=== PATIENT | male | born 1970 | race Caucasian/White ===

== ENCOUNTER 2016-12-18 12:07 | Emergency (ER) | payer BC ==
[~2016-12-18] VITALS: Ht 185.4 cm; Wt 132.8 kg
[~2016-12-18 12:07] MED LIST: ANALGESIC325 M1 PO; ANTIBIOTIC PO; ASPIR-LOW81 MG PO; ASPIRIN EC325 MG PO; AUGMENTIN875 MG PO; CEFDINIR300 MG PO; CIPRO500 MG PO; COLACE100 MG PO; EFFIENT10 MG PO; FLAGYL500 MG PO; KETOCONAZOLE120 ML TP; LISINOPRIL10 MG PO; LITE COAT ASPI325 M1 PO; LO-DOSE ASPIRIN81 M1 PO; LOPID600 MG PO; MAALOX ADVANCE355 ML PO; METOPROLOL SUC100 MG PO; METOPROLOL SUCC50 MG PO; MOTRIN600 MG PO; MUCINEX DM ER1 EACH PO; MULTIVITAMIN1 EAC1; MULTIVITAMIN1 EAC2 PO; NEXIUM; NICODERM CQ1 EAC1 TD; NITROSTAT0.4 MG SL; NORCO 5/3251 TABLET PO; ONE-A-DAY ESSE1 EAC1 PO; PANTOPRAZOLE SO40 MG PO; PERCOCET 10/1 TABLET PO; PERCOCET 5/31 TABLET PO; PLAVIX75 MG PO; PRAVASTATIN SOD40 MG PO; PRINIVIL10 MG PO; PROTONIX40 MG PO; RANEXA1000 MG PO; REGLAN10 MG PO; REGLAN5 MG PO; TOPROL XL100 MG PO; XANAX0.125 MG PO; XANAX0.25 MG PO; ZANTAC300 MG PO; ZOFRAN ODT4 MG PO
[2016-12-18 12:39] LABS: ADD MIUA? YES; BILIRUBIN NEGATIVE; BLOOD LARGE; COLOR YELLOW ((YELLOW)); GLUCOSE (STRIP) NEGATIVE; KETONES NEGATIVE; LEUKOCYTES NEGATIVE; NITRITE NEGATIVE; PROTEIN (STRIP) NEGATIVE; SPECIFIC GRAVITY 1.015 (1.000-1.030); UROBILINOGEN 0.2 MG/DL (0.2-1.0)
[2016-12-18 12:49] LABS: BACTERIA NONE SEEN /HPF; EPITHELIAL CELLS RARE /HPF; MUCUS TRACE /LPF; RED BLOOD CELLS TNTC /HPF (0-5); UCUL ADDED? NO; WHITE BLOOD CELLS 0-5 /HPF (0-5)
[2016-12-18 13:06] LABS: HEMATOCRIT 46.9 % (38.0-50.0); MCH 29.9 PG (29.0-34.0); MCHC 34.5 G/DL (30.0-36.0); MCV 86.5 FL (86-99); MEAN PLAT.VOLUME 8.6 uM^3 (9.0-12.4); PLATELET COUNT 261 K/uL (156-360); RBC DIS.WIDTH-CV 13.7 % (11.8-14.6); RBC DIS.WIDTH-SD 43.5 % (39-53); RED BLOOD COUNT 5.42 M/uL (4.00-5.50); WHITE BLOOD COUNT 8.8 K/uL (4.1-10.2)
[2016-12-18 13:16] LABS: CHLORIDE 105 mEq/L (99-109); POTASSIUM 4.3 mEq/L (3.7-5.4); SODIUM 140 mEq/L (136-147)
[2016-12-18 13:18] LABS: GLUCOSE 104 mg/dL (70-99)
[2016-12-18 13:20] LABS: ANION GAP 11 MEQ/L (2-14); TOTAL BILIRUBIN 0.2 mg/dL (0.0-1.0)
[2016-12-18 13:22] LABS: ALKALINE PHOSPHATASE 90 IU/L (3-129); GFR ESTIMATE (CALCULATED) > 59 mL/min/
[2016-12-18 13:23] LABS: UREA NITROGEN (BUN) 11 mg/dL (9-23)
[2016-12-18 14:16] LABS: CREATINE KINASE 309 IU/L (1-294); TOTAL CK 309 IU/L (1-294)
[2016-12-18 14:22] LABS: TROP-I INTERPRETATION NEGATIVE; TROPONIN-I < 0.01 ng/mL (0.0-0.30)
[2016-12-18 14:23] LABS: CK-MB 2.2 ng/mL (0.0-4.9)
[2016-12-18] MEDS ORDERED: FLOMAX0.4 MG PO (16:24)
[2016-12-18 16:36] VITALS: BP 116/68
== END 2016-12-18 16:36 | disposition home or self-care (01) ==
LOC: EME 12:07
DX: N20.0 Calculus of kidney (principal); N23 Unspecified renal colic; E78.5 Hyperlipidemia, unspecified; I10 Essential (primary) hypertension; I25.2 Old myocardial infarction; Z87.442 Personal history of urinary calculi; Z88.2 Allergy status to sulfonamides; F17.200 Nicotine dependence, unspecified, uncomplicated
CPT/HCPCS: 71020; 74176; 80053; 81003; 82550; 82550 91; 82553; 84484; 85027; 93005; 99281; 99284

== ENCOUNTER 2017-01-11 18:45 | Emergency (ER) | payer BC ==
[~2017-01-11] VITALS: Ht 185.4 cm; Wt 135.1 kg
[~2017-01-11 18:45] MED LIST changes: +FLOMAX0.4 MG PO
[2017-01-11 19:38] LABS: HEMATOCRIT 48.7 % (38.0-50.0); MCH 29.2 PG (29.0-34.0); MCHC 33.1 G/DL (30.0-36.0); MCV 88.4 FL (86-99); MEAN PLAT.VOLUME 8.8 uM^3 (9.0-12.4); PLATELET COUNT 276 K/uL (156-360); RBC DIS.WIDTH-CV 13.3 % (11.8-14.6); RBC DIS.WIDTH-SD 43.1 % (39-53); RED BLOOD COUNT 5.51 M/uL (4.00-5.50); WHITE BLOOD COUNT 11.3 K/uL (4.1-10.2)
[2017-01-11 19:42] LABS: ADD MIUA? YES; BILIRUBIN NEGATIVE; BLOOD LARGE; GLUCOSE (STRIP) NEGATIVE; KETONES NEGATIVE; LEUKOCYTES NEGATIVE; NITRITE NEGATIVE; PROTEIN (STRIP) 100; SPECIFIC GRAVITY 1.018 (1.000-1.030); UROBILINOGEN 0.2 MG/DL (0.2-1.0)
[2017-01-11 19:47] LABS: COLOR DK YELLOW ((YELLOW))
[2017-01-11 19:52] LABS: CHLORIDE 103 mEq/L (99-109); POTASSIUM 4.2 mEq/L (3.7-5.4); SODIUM 137 mEq/L (136-147)
[2017-01-11 19:54] LABS: GLUCOSE 107 mg/dL (70-99)
[2017-01-11 19:55] LABS: ANION GAP 10 MEQ/L (2-14)
[2017-01-11 19:58] LABS: GFR ESTIMATE (CALCULATED) > 59 mL/min/
[2017-01-11 19:59] LABS: UREA NITROGEN (BUN) 14 mg/dL (9-23)
[2017-01-11 20:34] LABS: EPITHELIAL CELLS NONE SEEN /HPF; MUCUS NONE SEEN /LPF; RED BLOOD CELLS TNTC /HPF (0-5); WHITE BLOOD CELLS 0-5 /HPF (0-5)
[2017-01-11 20:35] LABS: BACTERIA 1+ /HPF; UCUL ADDED? NO
[2017-01-11] MEDS ORDERED: FLOMAX0.4 MG PO (21:43)
[2017-01-11] MEDS ORDERED: INDOCIN50 MG PO (21:50)
[2017-01-11 21:58] VITALS: BP 159/95
[2017-01-17] MEDS ORDERED: FLOMAX0.4 MG PO (10:52)
[2017-01-17] MEDS ORDERED: NITROSTAT0.4 MG SL (10:54)
[2017-01-17] MEDS ORDERED: CIPRO500 MG PO (10:56)
[2017-01-17] MEDS ORDERED: ZOFRAN4 MG PO (10:56)
== END 2017-01-11 21:59 | disposition home or self-care (01) ==
LOC: RME 18:45 → EME 18:45 → RME 21:59
DX: N13.2 Hydronephrosis with renal and ureteral calculous obstruction (principal); R30.0 Dysuria; R31.9 Hematuria, unspecified; Z87.442 Personal history of urinary calculi; I10 Essential (primary) hypertension; I25.10 Atherosclerotic heart disease of native coronary artery without angina pectoris; I25.2 Old myocardial infarction; Z95.5 Presence of coronary angioplasty implant and graft; Z79.02 Long term (current) use of antithrombotics/antiplatelets; Z79.82 Long term (current) use of aspirin; F17.200 Nicotine dependence, unspecified, uncomplicated
CPT/HCPCS: 74176; 80048; 81003; 85027; 99281; 99285; J1885; J2405; J7030

== ENCOUNTER 2017-01-18 07:58 | Day surgery (SDC) | payer BC ==
[~2017-01-18] VITALS: Ht 185.4 cm; Wt 134.0 kg
[~2017-01-18 07:58] MED LIST changes: +INDOCIN50 MG PO; +ZOFRAN4 MG PO
[2017-01-18] MEDS ORDERED: ZOFRAN4 MG PO (08:23)
[2017-01-18] MEDS ORDERED: INDOCIN50 MG PO (08:28)
[2017-01-18 08:34] VITALS: BP 141/87
[2017-01-18 11:36] VITALS: BP 127/80
[2017-01-18 12:28] VITALS: BP 133/81
== END 2017-01-18 12:35 | disposition home or self-care (01) ==
LOC: SDC 07:58
PROVIDERS: Urology
DX: N20.1 Calculus of ureter (principal); F17.210 Nicotine dependence, cigarettes, uncomplicated; Z82.49 Family history of ischemic heart disease and other diseases of the circulatory system; Z80.3 Family history of malignant neoplasm of breast; Z88.2 Allergy status to sulfonamides
CPT/HCPCS: 74420; 82365 90; C1876; J0690; J1100; J1580; J2250; J2405; J3010

== ENCOUNTER 2017-03-02 13:06 | Emergency (ER) | payer BC ==
[~2017-03-02] VITALS: Ht 185.4 cm; Wt 131.6 kg
[2017-03-02 14:02] LABS: ADD MIUA? YES; BILIRUBIN NEGATIVE; BLOOD SMALL; COLOR YELLOW ((YELLOW)); GLUCOSE (STRIP) NEGATIVE; KETONES NEGATIVE; LEUKOCYTES NEGATIVE; NITRITE NEGATIVE; PROTEIN (STRIP) NEGATIVE; SPECIFIC GRAVITY 1.015 (1.000-1.030); UROBILINOGEN 0.2 MG/DL (0.2-1.0)
[2017-03-02 14:06] LABS: BACTERIA RARE /HPF; EPITHELIAL CELLS RARE /HPF; MUCUS TRACE /LPF; RED BLOOD CELLS 30-40 /HPF (0-5); UCUL ADDED? NO; WHITE BLOOD CELLS 0-5 /HPF (0-5)
[2017-03-02 14:39] LABS: HEMATOCRIT 49.2 % (38.0-50.0); MCH 29.7 PG (29.0-34.0); MCHC 33.9 G/DL (30.0-36.0); MCV 87.4 FL (86-99); MEAN PLAT.VOLUME 8.6 uM^3 (9.0-12.4); PLATELET COUNT 278 K/uL (156-360); RBC DIS.WIDTH-CV 13.6 % (11.8-14.6); RBC DIS.WIDTH-SD 43.5 % (39-53); RED BLOOD COUNT 5.63 M/uL (4.00-5.50); WHITE BLOOD COUNT 15.5 K/uL (4.1-10.2)
[2017-03-02 14:52] LABS: CHLORIDE 102 mEq/L (99-109); POTASSIUM 4.3 mEq/L (3.7-5.4); SODIUM 135 mEq/L (136-147)
[2017-03-02 14:54] LABS: GLUCOSE 100 mg/dL (70-99)
[2017-03-02 14:55] LABS: ANION GAP 11 MEQ/L (2-14)
[2017-03-02 14:56] LABS: TOTAL BILIRUBIN 0.4 mg/dL (0.0-1.0)
[2017-03-02 14:57] LABS: ALKALINE PHOSPHATASE 89 IU/L (3-129)
[2017-03-02 14:58] LABS: GFR ESTIMATE (CALCULATED) > 59 mL/min/
[2017-03-02 14:59] LABS: UREA NITROGEN (BUN) 10 mg/dL (9-23)
[2017-03-02] MEDS ORDERED: FLAGYL500 MG PO (18:04)
[2017-03-02] MEDS ORDERED: CIPRO500 MG PO (18:04)
[2017-03-02] MEDS ORDERED: ZOFRAN ODT4 MG PO (18:04)
[2017-03-02] MEDS ORDERED: FLOMAX0.4 MG PO (18:04)
[2017-03-02] MEDS ORDERED: PERCOCET 5/31 TABLET PO (18:04)
[2017-03-02 18:35] VITALS: BP 124/77
== END 2017-03-02 18:36 | disposition home or self-care (01) ==
LOC: EME 13:06
DX: K57.92 Diverticulitis of intestine, part unspecified, without perforation or abscess without bleeding (principal); N20.0 Calculus of kidney; E78.5 Hyperlipidemia, unspecified; I25.2 Old myocardial infarction; Z87.442 Personal history of urinary calculi; F17.200 Nicotine dependence, unspecified, uncomplicated; Z79.82 Long term (current) use of aspirin
CPT/HCPCS: 74176; 80053; 81003; 85027; 99281; 99284; J1885; J7030

== ENCOUNTER 2017-03-06 05:46 | Inpatient (IN) | payer BC ==
[~2017-03-06] VITALS: Ht 185.4 cm; Wt 130.8 kg
[2017-03-06 06:25] LABS: HEMATOCRIT 45.9 % (38.0-50.0); MCH 29.2 PG (29.0-34.0); MCHC 33.1 G/DL (30.0-36.0); MCV 88.1 FL (86-99); MEAN PLAT.VOLUME 8.6 uM^3 (9.0-12.4); PLATELET COUNT 289 K/uL (156-360); RBC DIS.WIDTH-CV 13.5 % (11.8-14.6); RBC DIS.WIDTH-SD 43.8 % (39-53); RED BLOOD COUNT 5.21 M/uL (4.00-5.50); WHITE BLOOD COUNT 12.1 K/uL (4.1-10.2)
[2017-03-06 06:37] LABS: CHLORIDE 102 mEq/L (99-109); POTASSIUM 4.1 mEq/L (3.7-5.4); SODIUM 135 mEq/L (136-147)
[2017-03-06 06:39] LABS: GLUCOSE 122 mg/dL (70-99)
[2017-03-06 06:40] LABS: ANION GAP 10 MEQ/L (2-14)
[2017-03-06 06:41] LABS: TOTAL BILIRUBIN 0.4 mg/dL (0.0-1.0)
[2017-03-06 06:42] LABS: ALKALINE PHOSPHATASE 78 IU/L (3-129)
[2017-03-06 06:43] LABS: GFR ESTIMATE (CALCULATED) > 59 mL/min/
[2017-03-06 06:44] LABS: UREA NITROGEN (BUN) 9 mg/dL (9-23)
[2017-03-06 06:46] LABS: LIPASE 17 U/L (1.0-51.0)
[2017-03-06 08:14] LABS: ADD MIUA? YES; BILIRUBIN NEGATIVE; BLOOD NEGATIVE; COLOR YELLOW ((YELLOW)); GLUCOSE (STRIP) NEGATIVE; KETONES NEGATIVE; LEUKOCYTES SMALL; NITRITE NEGATIVE; PROTEIN (STRIP) NEGATIVE; UROBILINOGEN 0.2 MG/DL (0.2-1.0)
[2017-03-06 08:39] LABS: BACTERIA NONE SEEN /HPF; EPITHELIAL CELLS NONE SEEN /HPF; MUCUS TRACE /LPF; UCUL ADDED? NO; WHITE BLOOD CELLS 0-5 /HPF (0-5)
[2017-03-06 09:18] LABS: SPECIFIC GRAVITY 1.068 (1.000-1.030)
[2017-03-06] MEDS ORDERED: METRONIDAZOLE500 MG PO (10:19)
[2017-03-06] MEDS ORDERED: TAMSULOSIN HCL0.4 MG PO (10:20)
[2017-03-06 12:15] VITALS: BP 139/75
[2017-03-06 16:00] VITALS: BP 113/68
[2017-03-06 23:51] VITALS: BP 120/60
[2017-03-07 07:07] VITALS: BP 135/69
[2017-03-07 16:43] VITALS: BP 134/82
[2017-03-07 23:30] VITALS: BP 131/62
[2017-03-08 07:21] VITALS: BP 137/62
[2017-03-08 08:03] LABS: HEMATOCRIT 41.4 % (38.0-50.0); MCH 29.6 PG (29.0-34.0); MCHC 33.6 G/DL (30.0-36.0); MCV 88.1 FL (86-99); MEAN PLAT.VOLUME 9.3 uM^3 (9.0-12.4); PLATELET COUNT 299 K/uL (156-360); RBC DIS.WIDTH-CV 13.4 % (11.8-14.6); RBC DIS.WIDTH-SD 43.6 % (39-53); WHITE BLOOD COUNT 11.3 K/uL (4.1-10.2)
[2017-03-08 08:35] LABS: CHLORIDE 102 mEq/L (99-109); POTASSIUM 3.8 mEq/L (3.7-5.4); SODIUM 135 mEq/L (136-147)
[2017-03-08 08:36] LABS: GLUCOSE 138 mg/dL (70-99)
[2017-03-08 08:38] LABS: ANION GAP 9 MEQ/L (2-14)
[2017-03-08 08:40] LABS: GFR ESTIMATE (CALCULATED) > 59 mL/min/
[2017-03-08 08:41] LABS: UREA NITROGEN (BUN) 9 mg/dL (9-23)
[2017-03-08 16:01] VITALS: BP 142/77
[2017-03-08 23:07] VITALS: BP 135/68
[2017-03-09 07:09] VITALS: BP 148/64
[2017-03-09 07:10] LABS: HEMATOCRIT 41.7 % (38.0-50.0); MCH 29.6 PG (29.0-34.0); MCHC 33.8 G/DL (30.0-36.0); MCV 87.6 FL (86-99); MEAN PLAT.VOLUME 8.7 uM^3 (9.0-12.4); PLATELET COUNT 335 K/uL (156-360); RBC DIS.WIDTH-CV 13.4 % (11.8-14.6); RBC DIS.WIDTH-SD 43.3 % (39-53); RED BLOOD COUNT 4.76 M/uL (4.00-5.50); WHITE BLOOD COUNT 11.1 K/uL (4.1-10.2)
[2017-03-09 23:54] VITALS: BP 121/67
[2017-03-10 06:23] LABS: HEMATOCRIT 39.6 % (38.0-50.0); MCH 29.9 PG (29.0-34.0); MCHC 34.1 G/DL (30.0-36.0); MCV 87.8 FL (86-99); MEAN PLAT.VOLUME 8.7 uM^3 (9.0-12.4); PLATELET COUNT 368 K/uL (156-360); RBC DIS.WIDTH-CV 13.3 % (11.8-14.6); RBC DIS.WIDTH-SD 43.3 % (39-53); RED BLOOD COUNT 4.51 M/uL (4.00-5.50); WHITE BLOOD COUNT 9.4 K/uL (4.1-10.2)
[2017-03-10 07:40] VITALS: BP 119/60
[2017-03-10] MEDS ORDERED: DOCUSATE SODIU100 MG PO (14:41)
[2017-03-10] MEDS ORDERED: HYDROCODON-ACE1 EAC7 PO (14:41)
[2017-03-10] MEDS ORDERED: AUGMENTIN875 MG PO (14:41)
== END 2017-03-10 15:16 | disposition home or self-care (01) | DRG 392 ==
LOC: EME 05:46 → EDOF 09:30 → 5EAST 09:30 → EDOF 12:43 → 5EAST 12:46
PROVIDERS: Emergency Medicine; Physician Assistant
DX: K57.20 Diverticulitis of large intestine with perforation and abscess without bleeding (principal); N20.2 Calculus of kidney with calculus of ureter; I25.10 Atherosclerotic heart disease of native coronary artery without angina pectoris; I10 Essential (primary) hypertension; E78.5 Hyperlipidemia, unspecified; K21.9 Gastro-esophageal reflux disease without esophagitis; K42.9 Umbilical hernia without obstruction or gangrene; F41.9 Anxiety disorder, unspecified; I25.2 Old myocardial infarction; F17.210 Nicotine dependence, cigarettes, uncomplicated; E66.9 Obesity, unspecified; Z68.38 Body mass index [BMI] 38.0-38.9, adult
CPT/HCPCS: 74177; 80048; 80053; 81003; 83690; 85027; 99281; 99285; J1650; J2270; J2405; J2543; J7030; J7050; J7120; S0028

== ENCOUNTER 2017-05-17 01:57 | Emergency (ER) | payer BC ==
[~2017-05-17] VITALS: Ht 185.4 cm; Wt 131.7 kg
[~2017-05-17 01:57] MED LIST changes: +DOCUSATE SODIU100 MG PO; +HYDROCODON-ACE1 EAC7 PO; +METRONIDAZOLE500 MG PO; +TAMSULOSIN HCL0.4 MG PO
[2017-05-17 02:30] LABS: MCH 29.4 PG (29.0-34.0); MCHC 33.3 G/DL (30.0-36.0); MCV 88.2 FL (86-99); MEAN PLAT.VOLUME 8.6 uM^3 (9.0-12.4); PLATELET COUNT 269 K/uL (156-360); RBC DIS.WIDTH-SD 45.1 % (39-53); WHITE BLOOD COUNT 10.1 K/uL (4.1-10.2)
[2017-05-17 02:43] LABS: CHLORIDE 103 mEq/L (99-109); SODIUM 139 mEq/L (136-147)
[2017-05-17 02:45] LABS: GLUCOSE 114 mg/dL (70-99)
[2017-05-17 02:46] LABS: ANION GAP 10 MEQ/L (2-14)
[2017-05-17 02:47] LABS: TOTAL BILIRUBIN 0.3 mg/dL (0.0-1.0)
[2017-05-17 02:48] LABS: ALKALINE PHOSPHATASE 92 IU/L (3-129)
[2017-05-17 02:49] LABS: GFR ESTIMATE (CALCULATED) > 59 mL/min/
[2017-05-17 02:50] LABS: UREA NITROGEN (BUN) 13 mg/dL (9-23)
[2017-05-17 02:52] LABS: LIPASE 24 U/L (1.0-51.0)
[2017-05-17] MEDS ORDERED: AUGMENTIN875 MG PO (04:18)
[2017-05-17] MEDS ORDERED: ZOFRAN4 MG PO (04:18)
[2017-05-17 04:29] LABS: BILIRUBIN NEGATIVE; BLOOD NEGATIVE; COLOR YELLOW ((YELLOW)); GLUCOSE (STRIP) NEGATIVE; KETONES NEGATIVE; LEUKOCYTES NEGATIVE; NITRITE NEGATIVE; PROTEIN (STRIP) 30; SPECIFIC GRAVITY 1.025 (1.000-1.030); UROBILINOGEN 0.2 MG/DL (0.2-1.0)
[2017-05-17 04:36] LABS: ADD MIUA? NO; UCUL ADDED? NO
[2017-05-17 04:37] VITALS: BP 151/97
[2017-05-18] MEDS ORDERED: ERYTHROMYC1 APPLICAT RIGHT EYE (22:50)
== END 2017-05-17 04:37 | disposition home or self-care (01) ==
LOC: EME 01:57
DX: R10.30 Lower abdominal pain, unspecified (principal); R11.0 Nausea; I10 Essential (primary) hypertension; I25.10 Atherosclerotic heart disease of native coronary artery without angina pectoris; Z95.5 Presence of coronary angioplasty implant and graft; Z79.02 Long term (current) use of antithrombotics/antiplatelets; Z79.82 Long term (current) use of aspirin; F17.200 Nicotine dependence, unspecified, uncomplicated
CPT/HCPCS: 80053; 81003; 83690; 85027; 99281; 99285; J2405; J7030

== ENCOUNTER 2017-05-18 22:03 | Emergency (ER) | payer BC ==
[~2017-05-18] VITALS: Ht 185.4 cm; Wt 132.8 kg
[2017-05-18] MEDS ORDERED: ERYTHROMYC1 APPLICAT RIGHT EYE (22:50)
[2017-05-18 23:25] VITALS: BP 146/91
== END 2017-05-18 23:20 | disposition home or self-care (01) ==
LOC: EME 22:03
DX: S05.01XA Injury of conjunctiva and corneal abrasion without foreign body, right eye, initial encounter (principal); H10.9 Unspecified conjunctivitis; X58.XXXA Exposure to other specified factors, initial encounter; Z95.5 Presence of coronary angioplasty implant and graft; Z79.02 Long term (current) use of antithrombotics/antiplatelets; Z79.82 Long term (current) use of aspirin; F17.200 Nicotine dependence, unspecified, uncomplicated
CPT/HCPCS: 99281; 99284

== ENCOUNTER 2017-06-21 18:01 | Emergency (ER) | payer BC ==
[~2017-06-21] VITALS: Ht 185.4 cm; Wt 133.8 kg
[~2017-06-21 18:01] MED LIST changes: +ERYTHROMYC1 APPLICAT RIGHT EYE
[2017-06-21 18:38] LABS: ADD MIUA? NO; BILIRUBIN NEGATIVE; BLOOD NEGATIVE; COLOR YELLOW ((YELLOW)); GLUCOSE (STRIP) NEGATIVE; KETONES NEGATIVE; LEUKOCYTES NEGATIVE; NITRITE NEGATIVE; PROTEIN (STRIP) NEGATIVE; UCUL ADDED? NO; UROBILINOGEN 0.2 MG/DL (0.2-1.0)
[2017-06-21 20:25] LABS: HEMATOCRIT 47.4 % (38.0-50.0); MCH 29.3 PG (29.0-34.0); MCHC 32.9 G/DL (30.0-36.0); MCV 88.9 FL (86-99); MEAN PLAT.VOLUME 8.7 uM^3 (9.0-12.4); PLATELET COUNT 280 K/uL (156-360); RBC DIS.WIDTH-CV 14.2 % (11.8-14.6); RBC DIS.WIDTH-SD 45.2 % (39-53); RED BLOOD COUNT 5.33 M/uL (4.00-5.50); WHITE BLOOD COUNT 13.1 K/uL (4.1-10.2)
[2017-06-21 20:39] LABS: CHLORIDE 102 mEq/L (99-109); POTASSIUM 4.2 mEq/L (3.7-5.4); SODIUM 139 mEq/L (136-147)
[2017-06-21 20:42] LABS: GLUCOSE 98 mg/dL (70-99)
[2017-06-21 20:43] LABS: ANION GAP 12 MEQ/L (2-14)
[2017-06-21 20:44] LABS: TOTAL BILIRUBIN 0.2 mg/dL (0.0-1.0)
[2017-06-21 20:45] LABS: ALKALINE PHOSPHATASE 92 IU/L (3-129); GFR ESTIMATE (CALCULATED) > 59 mL/min/
[2017-06-21 20:46] LABS: UREA NITROGEN (BUN) 12 mg/dL (9-23)
[2017-06-21] MEDS ORDERED: ZOFRAN ODT4 MG PO (22:49)
[2017-06-21] MEDS ORDERED: AUGMENTIN875 MG PO (22:49)
[2017-06-21 23:13] VITALS: BP 144/89
== END 2017-06-21 23:15 | disposition home or self-care (01) ==
LOC: EME 18:01
DX: K57.32 Diverticulitis of large intestine without perforation or abscess without bleeding (principal); K42.9 Umbilical hernia without obstruction or gangrene; K76.0 Fatty (change of) liver, not elsewhere classified; N28.1 Cyst of kidney, acquired; I10 Essential (primary) hypertension; Z87.442 Personal history of urinary calculi; Z95.5 Presence of coronary angioplasty implant and graft; Z79.02 Long term (current) use of antithrombotics/antiplatelets; Z79.82 Long term (current) use of aspirin; F17.200 Nicotine dependence, unspecified, uncomplicated
CPT/HCPCS: 74177; 80053; 81003; 85027; 99281; 99284; J7030

== ENCOUNTER 2017-07-31 21:55 | Inpatient (IN) | payer BC ==
[~2017-07-31] VITALS: Ht 185.4 cm; Wt 133.0 kg
[~2017-07-31 21:55] MED LIST changes: +ENTEREG12 MG PO; +FLONASE16 G1 BOTH NARES; +RAPATHA IM; +ZETIA10 MG PO
[2017-08-01 06:22] VITALS: BP 140/88
[2017-08-01 14:45] LABS: HEMATOCRIT 40.7 % (38.0-50.0); MCH 29.8 PG (29.0-34.0); MCHC 32.9 G/DL (30.0-36.0); MCV 90.6 FL (86-99); MEAN PLAT.VOLUME 8.7 uM^3 (9.0-12.4); PLATELET COUNT 236 K/uL (156-360); RBC DIS.WIDTH-CV 13.9 % (11.8-14.6); RBC DIS.WIDTH-SD 46.1 % (39-53); RED BLOOD COUNT 4.49 M/uL (4.00-5.50); WHITE BLOOD COUNT 14.9 K/uL (4.1-10.2)
[2017-08-01 15:35] VITALS: BP 119/69
[2017-08-01 19:21] VITALS: BP 128/70
[2017-08-01 20:09] VITALS: BP 128/70
[2017-08-02 01:42] VITALS: BP 118/66
[2017-08-02 05:52] LABS: HEMATOCRIT 38.4 % (38.0-50.0); MCH 30.4 PG (29.0-34.0); MCHC 33.6 G/DL (30.0-36.0); MCV 90.4 FL (86-99); MEAN PLAT.VOLUME 8.9 uM^3 (9.0-12.4); PLATELET COUNT 208 K/uL (156-360); RBC DIS.WIDTH-CV 13.8 % (11.8-14.6); RBC DIS.WIDTH-SD 45.7 % (39-53); RED BLOOD COUNT 4.25 M/uL (4.00-5.50); WHITE BLOOD COUNT 12.9 K/uL (4.1-10.2)
[2017-08-02 06:16] VITALS: BP 131/63
[2017-08-02 06:19] LABS: ANION GAP 7 MEQ/L (2-14); CHLORIDE 102 MEQ/L (99-109); GFR ESTIMATE (CALCULATED) > 59 mL/min/; GLUCOSE 125 mg/dL (70-99); MAGNESIUM 1.6 mg/dl (1.3-2.7); POTASSIUM 4.8 MEQ/L (3.7-5.4); SAMPLE HEMOLYSIS CHECK 0; SAMPLE ICTERIC CHECK 0; SAMPLE LIPEMIA CHECK 0; SODIUM 137 MEQ/L (136-147); UREA NITROGEN (BUN) 11 mg/dL (9-23)
[2017-08-02 07:25] VITALS: BP 105/55
[2017-08-02 15:15] VITALS: BP 125/65
[2017-08-02 20:30] VITALS: BP 116/78
[2017-08-02 23:04] VITALS: BP 122/57
[2017-08-03 04:10] VITALS: BP 128/64
[2017-08-03 07:05] VITALS: BP 134/70
[2017-08-03 09:34] LABS: HEMATOCRIT 41.8 % (38.0-50.0); MCH 29.7 PG (29.0-34.0); MCHC 32.8 G/DL (30.0-36.0); MCV 90.5 FL (86-99); PLATELET COUNT 251 K/uL (156-360); RBC DIS.WIDTH-CV 14.1 % (11.8-14.6); RBC DIS.WIDTH-SD 47.2 % (39-53); RED BLOOD COUNT 4.62 M/uL (4.00-5.50); WHITE BLOOD COUNT 11.6 K/uL (4.1-10.2)
[2017-08-03 10:04] LABS: ANION GAP 8 MEQ/L (2-14); CHLORIDE 101 MEQ/L (99-109); GFR ESTIMATE (CALCULATED) > 59 mL/min/; GLUCOSE 129 mg/dL (70-99); MAGNESIUM 1.9 mg/dl (1.3-2.7); SAMPLE HEMOLYSIS CHECK 0; SAMPLE ICTERIC CHECK 0; SAMPLE LIPEMIA CHECK 0; SODIUM 137 MEQ/L (136-147); UREA NITROGEN (BUN) 10 mg/dL (9-23)
[2017-08-03 15:10] VITALS: BP 119/64
[2017-08-03 19:17] VITALS: BP 142/82
[2017-08-03 23:12] VITALS: BP 128/66
[2017-08-04 02:38] VITALS: BP 137/70
[2017-08-04 06:08] LABS: HEMATOCRIT 39.8 % (38.0-50.0); MCHC 32.7 G/DL (30.0-36.0); MCV 88.8 FL (86-99); MEAN PLAT.VOLUME 8.8 uM^3 (9.0-12.4); PLATELET COUNT 270 K/uL (156-360); RBC DIS.WIDTH-CV 13.8 % (11.8-14.6); RBC DIS.WIDTH-SD 45.1 % (39-53); RED BLOOD COUNT 4.48 M/uL (4.00-5.50); WHITE BLOOD COUNT 9.6 K/uL (4.1-10.2)
[2017-08-04 06:33] LABS: ANION GAP 11 MEQ/L (2-14); CHLORIDE 104 MEQ/L (99-109); GFR ESTIMATE (CALCULATED) > 59 mL/min/; GLUCOSE 118 mg/dL (70-99); MAGNESIUM 1.8 mg/dl (1.3-2.7); SAMPLE HEMOLYSIS CHECK 0; SAMPLE ICTERIC CHECK 0; SAMPLE LIPEMIA CHECK 0; SODIUM 141 MEQ/L (136-147); UREA NITROGEN (BUN) 10 mg/dL (9-23)
[2017-08-04 08:18] VITALS: BP 91/50
[2017-08-04 08:20] VITALS: BP 158/95
[2017-08-04 16:33] VITALS: BP 138/77
[2017-08-04 19:13] VITALS: BP 145/78
[2017-08-04 23:03] VITALS: BP 130/69
[2017-08-05 06:34] LABS: HEMATOCRIT 39.5 % (38.0-50.0); MCH 29.1 PG (29.0-34.0); MCHC 32.7 G/DL (30.0-36.0); MEAN PLAT.VOLUME 8.7 uM^3 (9.0-12.4); PLATELET COUNT 295 K/uL (156-360); RBC DIS.WIDTH-CV 13.7 % (11.8-14.6); RBC DIS.WIDTH-SD 44.4 % (39-53); RED BLOOD COUNT 4.44 M/uL (4.00-5.50); WHITE BLOOD COUNT 8.7 K/uL (4.1-10.2)
[2017-08-05 07:02] LABS: ANION GAP 10 MEQ/L (2-14); CHLORIDE 104 MEQ/L (99-109); GFR ESTIMATE (CALCULATED) > 59 mL/min/; GLUCOSE 121 mg/dL (70-99); MAGNESIUM 1.9 mg/dl (1.3-2.7); SAMPLE HEMOLYSIS CHECK 0; SAMPLE ICTERIC CHECK 0; SAMPLE LIPEMIA CHECK 0; SODIUM 140 MEQ/L (136-147); UREA NITROGEN (BUN) 11 mg/dL (9-23)
[2017-08-05 07:29] VITALS: BP 140/82
[2017-08-05 16:20] VITALS: BP 130/62
[2017-08-05 23:42] VITALS: BP 119/56
[2017-08-06 06:19] LABS: HEMATOCRIT 39.6 % (38.0-50.0); MCH 29.6 PG (29.0-34.0); MCHC 33.3 G/DL (30.0-36.0); MCV 88.8 FL (86-99); MEAN PLAT.VOLUME 8.8 uM^3 (9.0-12.4); PLATELET COUNT 307 K/uL (156-360); RBC DIS.WIDTH-CV 13.5 % (11.8-14.6); RBC DIS.WIDTH-SD 43.9 % (39-53); RED BLOOD COUNT 4.46 M/uL (4.00-5.50)
[2017-08-06 06:45] LABS: ANION GAP 12 MEQ/L (2-14); CHLORIDE 104 MEQ/L (99-109); GFR ESTIMATE (CALCULATED) > 59 mL/min/; GLUCOSE 115 mg/dL (70-99); POTASSIUM 4.3 MEQ/L (3.7-5.4); SAMPLE HEMOLYSIS CHECK 2; SAMPLE ICTERIC CHECK 0; SAMPLE LIPEMIA CHECK 0; SODIUM 141 MEQ/L (136-147); UREA NITROGEN (BUN) 10 mg/dL (9-23)
[2017-08-06 08:12] VITALS: BP 147/71
[2017-08-06] MEDS ORDERED: NORCO 5/3251 TABLET PO (10:27)
== END 2017-08-06 13:00 | disposition home or self-care (01) | DRG 331 ==
LOC: 2SOUTH → ENRESERV 21:55 → 5EAST 08-01 05:30 → 2SOUTH 08-01 05:30 → ENRESERV 08-01 12:56 → 5EAST 08-01 15:32
PROVIDERS: Physician Assistant; Surgery
DX: K57.32 Diverticulitis of large intestine without perforation or abscess without bleeding (principal); K21.9 Gastro-esophageal reflux disease without esophagitis; F41.1 Generalized anxiety disorder; G43.909 Migraine, unspecified, not intractable, without status migrainosus; I10 Essential (primary) hypertension; E78.5 Hyperlipidemia, unspecified; K44.9 Diaphragmatic hernia without obstruction or gangrene; K22.70 Barrett's esophagus without dysplasia; I25.10 Atherosclerotic heart disease of native coronary artery without angina pectoris; I25.2 Old myocardial infarction; Z68.38 Body mass index [BMI] 38.0-38.9, adult; Z91.19 Patient's noncompliance with other medical treatment and regimen; Z82.49 Family history of ischemic heart disease and other diseases of the circulatory system
CPT/HCPCS: 36415; 80048; 80061; 83721 90; 83735; 84100; 85025; 85027; 86850; 86900; 86901; 86920; 88302; 88307; 93005; 94799; J0131; J0330; J1100; J1170; J1335; J1885; J2250; J2405; J2710; J3010; J3480; J7050; J7120

== ENCOUNTER 2017-08-08 22:41 | Emergency (ER) | payer BC ==
[~2017-08-08] VITALS: Ht 185.4 cm; Wt 127.6 kg
[2017-08-08 23:17] LABS: HEMATOCRIT 38.9 % (38.0-50.0); MCH 29.9 PG (29.0-34.0); MCHC 33.7 G/DL (30.0-36.0); MCV 88.8 FL (86-99); MEAN PLAT.VOLUME 8.5 uM^3 (9.0-12.4); PLATELET COUNT 330 K/uL (156-360); RBC DIS.WIDTH-CV 13.6 % (11.8-14.6); RED BLOOD COUNT 4.38 M/uL (4.00-5.50); WHITE BLOOD COUNT 12.2 K/uL (4.1-10.2)
[2017-08-08 23:56] LABS: CHLORIDE 106 mEq/L (99-109); POTASSIUM 3.9 mEq/L (3.7-5.4); SODIUM 140 mEq/L (136-147); TROP-I INTERPRETATION NEGATIVE; TROPONIN-I < 0.01 ng/mL (0.0-0.30)
[2017-08-08 23:57] LABS: MAGNESIUM 2.1 mg/dL (1.3-2.7)
[2017-08-08 23:59] LABS: GLUCOSE 122 mg/dL (70-99)
[2017-08-09] LABS: ANION GAP 10 MEQ/L (2-14); TOTAL BILIRUBIN 0.2 mg/dL (0.0-1.0)
[2017-08-09 00:02] LABS: ALKALINE PHOSPHATASE 88 IU/L (3-129); GFR ESTIMATE (CALCULATED) > 59 mL/min/
[2017-08-09 00:03] LABS: UREA NITROGEN (BUN) 11 mg/dL (9-23)
[2017-08-09 00:04] LABS: DIRECT BILIRUBIN 0.1 mg/dL (0.0-0.3)
[2017-08-09 00:06] LABS: LIPASE 28 U/L (1.0-51.0)
[2017-08-09 03:06] LABS: TROP-I INTERPRETATION NEGATIVE; TROPONIN-I < 0.01 ng/mL (0.0-0.30)
[2017-08-09] MEDS ORDERED: COLACE100 MG PO (03:17)
[2017-08-09] MEDS ORDERED: NORCO 5/3251 TABLET PO (03:17)
[2017-08-09 03:45] VITALS: BP 133/78
== END 2017-08-09 03:45 | disposition home or self-care (01) ==
LOC: EME 22:41
PROVIDERS: Emergency Medicine
DX: M79.652 Pain in left thigh (principal); M79.632 Pain in left forearm; G89.18 Other acute postprocedural pain; Z98.890 Other specified postprocedural states; R07.9 Chest pain, unspecified; R10.9 Unspecified abdominal pain; R42 Dizziness and giddiness; K57.30 Diverticulosis of large intestine without perforation or abscess without bleeding; K76.0 Fatty (change of) liver, not elsewhere classified; K92.1 Melena; E78.5 Hyperlipidemia, unspecified; Z95.5 Presence of coronary angioplasty implant and graft; Z79.02 Long term (current) use of antithrombotics/antiplatelets; Z79.82 Long term (current) use of aspirin; Z90.49 Acquired absence of other specified parts of digestive tract; F17.200 Nicotine dependence, unspecified, uncomplicated
CPT/HCPCS: 71020; 74177; 80048; 80076; 83690; 83735; 84100; 84484; 85027; 93005; 99281; 99285; J2270; J3010; J7030

== ENCOUNTER 2018-01-15 16:45 | Observation (INO) | payer BC ==
[~2018-01-15] VITALS: Ht 185.4 cm; Wt 131.3 kg
[2018-01-15 17:43] LABS: HEMATOCRIT 45.4 % (38.0-50.0); HEMOGLOBIN 15.5 G/DL (12.5-16.6); MCH 29.5 PG (29.0-34.0); MCHC 34.1 G/DL (30.0-36.0); MCV 86.3 FL (86-99); PLATELET COUNT 262 K/uL (156-360); RBC DIS.WIDTH-CV 14.3 % (11.8-14.6); RBC DIS.WIDTH-SD 45.2 % (39-53); RED BLOOD COUNT 5.26 M/uL (4.00-5.50)
[2018-01-15 17:51] LABS: CHLORIDE 104 mEq/L (99-109); POTASSIUM 4.4 mEq/L (3.7-5.4); SODIUM 140 mEq/L (136-147)
[2018-01-15 17:53] LABS: GLUCOSE 91 mg/dL (70-99)
[2018-01-15 17:56] LABS: CREATININE 0.9 mg/dL (0.6-1.3); GFR ESTIMATE (CALCULATED) > 59 mL/min/ (58.99-99999)
[2018-01-15 17:57] LABS: UREA NITROGEN (BUN) 10 mg/dL (9-23)
[2018-01-15 18:03] LABS: TROP-I INTERPRETATION NEGATIVE; TROPONIN-I < 0.01 ng/mL (0.0-0.30)
[2018-01-15 20:11] LABS: PTT 32.8 SEC (25-37)
[2018-01-15] MEDS ORDERED: REPATHA SU140 MG/1 M SC (20:37)
[2018-01-15] MEDS ORDERED: PANTOPRAZOLE SO40 MG PO (20:37)
[2018-01-15] MEDS ORDERED: ALPRAZOLAM0.25 M2 PO (20:37)
[2018-01-15] MEDS ORDERED: CLOPIDOGREL75 MG PO (20:38)
[2018-01-15] MEDS ORDERED: METOPROLOL SUC100 MG PO (20:38)
[2018-01-15] MEDS ORDERED: COLACE100 MG PO (20:41)
[2018-01-15 23:36] VITALS: BP 132/75
[2018-01-16 01:06] LABS: TROP-I INTERPRETATION NEGATIVE; TROPONIN-I < 0.01 ng/mL (0.0-0.30)
[2018-01-16 03:40] VITALS: BP 140/82
[2018-01-16 06:07] LABS: TROP-I INTERPRETATION NEGATIVE; TROPONIN-I < 0.01 ng/mL (0.0-0.30)
[2018-01-16 07:29] VITALS: BP 154/87
[2018-01-16 11:14] VITALS: BP 134/75
[2018-01-16] MEDS ORDERED: RANEXA500 MG PO (11:33)
== END 2018-01-16 12:00 | disposition home or self-care (01) ==
LOC: EME 16:45 → 5WEST 22:09 → EDOF 22:09 → ENRESERV 22:10 → 5WEST 23:31
PROVIDERS: Hospitalist; Physician Assistant
DX: R07.9 Chest pain, unspecified (principal); I25.10 Atherosclerotic heart disease of native coronary artery without angina pectoris; I25.2 Old myocardial infarction; Z95.5 Presence of coronary angioplasty implant and graft; E78.5 Hyperlipidemia, unspecified; I10 Essential (primary) hypertension; F17.200 Nicotine dependence, unspecified, uncomplicated; E66.01 Morbid (severe) obesity due to excess calories; Z68.38 Body mass index [BMI] 38.0-38.9, adult; I47.1 Supraventricular tachycardia; K44.9 Diaphragmatic hernia without obstruction or gangrene; K22.70 Barrett's esophagus without dysplasia; F41.9 Anxiety disorder, unspecified; Z87.442 Personal history of urinary calculi; Z90.49 Acquired absence of other specified parts of digestive tract; Z82.49 Family history of ischemic heart disease and other diseases of the circulatory system; Z80.49 Family history of malignant neoplasm of other genital organs; Z88.2 Allergy status to sulfonamides; Z88.8 Allergy status to other drugs, medicaments and biological substances
CPT/HCPCS: 71046; 80048; 84484; 85027; 85610; 85730; 93005; 99281; 99284; G0378; J1650

== ENCOUNTER 2018-02-07 08:28 | Day surgery (SDC) | payer BC ==
[~2018-02-07] VITALS: Ht 185.4 cm; Wt 130.8 kg
[~2018-02-07 08:28] MED LIST changes: +ALPRAZOLAM0.25 M2 PO; +CLOPIDOGREL75 MG PO; +RANEXA500 MG PO; +REPATHA SU140 MG/1 M SC
[2018-02-07 17:35] VITALS: BP 134/73
[2018-02-07 19:44] VITALS: BP 140/73
[2018-02-08 00:06] VITALS: BP 127/77
[2018-02-08 04:37] VITALS: BP 135/73
[2018-02-08 05:34] LABS: BASOPHIL (%) 0.7 % (0-1); BASOPHIL COUNT 0.1 K/uL (0-0.1); EOSINOPHIL (%) 1.8 % (0-5); EOSINOPHIL COUNT 0.2 K/uL (0-0.3); HEMATOCRIT 45.1 % (38.0-50.0); IMMATURE GRANULOCYTE (%) 0.9 % (0.0-0.7); LYMPHOCYTE (%) 23.9 % (15-42); LYMPHOCYTE COUNT 2.1 K/uL (1.0-2.8); MCH 28.5 PG (29.0-34.0); MCHC 33.3 G/DL (30.0-36.0); MCV 85.7 FL (86-99); MONOCYTE (%) 7.9 % (3-12); MONOCYTE COUNT 0.7 K/uL (0-0.8); NEUTROPHIL (%) 64.8 % (45-76); NEUTROPHIL COUNT 5.7 K/uL (1.8-6.4); PLATELET COUNT 256 K/uL (156-360); RBC DIS.WIDTH-CV 13.9 % (11.8-14.6); RBC DIS.WIDTH-SD 43.6 % (39-53); RED BLOOD COUNT 5.26 M/uL (4.00-5.50); WHITE BLOOD COUNT 8.8 K/uL (4.1-10.2)
[2018-02-08 05:49] LABS: CHLORIDE 103 MEQ/L (99-109); CREATININE 0.8 MG/DL (0.6-1.3); GFR ESTIMATE (CALCULATED) > 59 mL/min/ (58.99-99999); GLUCOSE 111 mg/dL (70-99); POTASSIUM 4.5 MEQ/L (3.7-5.4); SODIUM 137 MEQ/L (136-147); UREA NITROGEN (BUN) 11 mg/dL (9-23)
[2018-02-08 08:04] VITALS: BP 134/78
== END 2018-02-08 11:28 | disposition home or self-care (01) ==
LOC: CATH 08:28 → ENRESERV 12:02 → 4EAST 12:45 → 2SOUTH 12:45 → ENRESERV 16:59 → 4EAST 17:14
PROVIDERS: Internal Medicine Interventional Cardiology
DX: I25.110 Atherosclerotic heart disease of native coronary artery with unstable angina pectoris (principal); T82.858A Stenosis of other vascular prosthetic devices, implants and grafts, initial encounter; I10 Essential (primary) hypertension; E78.5 Hyperlipidemia, unspecified; E66.9 Obesity, unspecified; Z68.38 Body mass index [BMI] 38.0-38.9, adult; F17.200 Nicotine dependence, unspecified, uncomplicated
CPT/HCPCS: 80048; 82948; 85025; 85347; 93005; C1725; C1769; C1874; C1887; G0378; J1644; J2250; J3010; J7030